=== PATIENT | male | born 1945 ===

== ENCOUNTER → 2020-03-12 | Outpatient (CLI) | payer OTHER | END | disposition home or self-care (01) | LOC: RAD 11:01 | PROVIDERS: ATTEND Physical Medicine & Rehabilitation | DX: M54.5 Low back pain (principal); M54.11 Radiculopathy, occipito-atlanto-axial region ==

== ENCOUNTER 2021-08-11 09:00 | Outpatient (CLI) | payer OTHER | END 2021-08-11 09:30 | disposition home or self-care (01) | LOC: PPH VACUNA 09:00 | PROVIDERS: ATTEND Emergency Medicine Pediatric Emergency Medicine | DX: Z23 Encounter for immunization (principal) ==

== ENCOUNTER 2022-01-10 08:00 | Outpatient (CLI) | payer OTHER | END 2022-01-10 08:30 | disposition home or self-care (01) | LOC: PPH VACUNA 08:00 | PROVIDERS: ATTEND Emergency Medicine Pediatric Emergency Medicine | DX: Z23 Encounter for immunization (principal) ==